=== PATIENT | male | born 1935 | race Caucasian/White ===

== ENCOUNTER → 2017-01-26 | Outpatient (CLI) | payer BC ==
[~2017-01-26] MED LIST: ADALAT CC30 MG PO; ALDACTONE 25MG25 M1 PO; ALDACTONE 25MG25 MG PO; ALTACE10 MG PO; AMBIEN 5MG TABLE5 MG PO; ATIVAN 0.50.5 MG/TAB PO; CATAFLAM50 MG PO; CEPHALEXIN500 M1 PO; CLARITIN 1010 MG/TAB PO; ENULOSE10 GM/15 M; FENTANYL 12MCG TD; FLOMAX 0.40.4 MG/CAP PO; FOLIC ACID 11 MG/TA1 PO; K-LOR CON; KLOR-CON M2020 MEQ PO; LEVAQUIN 5500 MG/TA1 PO; LEVAQUIN 750MG750 M1 PO; LOVENOX 100100 MG/ML SQ; MEGACE ORAL40 MG/ML PO; MILK OF MA1200 MG/5; MILK OF MA1200 MG/5 PO; PACERONE200 MG PO; PERCOCET 325 MG1 TA2 PO; PREDNISONE20 MG PO; ROXICODONE 55 MG/TAB PO; RT ADVAIR HFA 1112 G IH; SENNA8.6 MG PO; TOPROL XL 50MG50 MG PO; TOPROL XL50 MG PO; TYLENOL 500MG500 MG PO; XARELTO15 MG PO; ZOFRAN8 MG PO
== END ==
LOC: COL.RAD 08:09
DX: C34.90 Malignant neoplasm of unspecified part of unspecified bronchus or lung (principal); I61.9 Nontraumatic intracerebral hemorrhage, unspecified
CPT/HCPCS: A9585; Q9967

== ENCOUNTER → 2017-04-19 | Outpatient (CLI) | payer BC | LOC: COL.RAD 08:10 | DX: Z01.812 Encounter for preprocedural laboratory examination (principal); G93.89 Other specified disorders of brain; R90.82 White matter disease, unspecified; R59.0 Localized enlarged lymph nodes; M89.9 Disorder of bone, unspecified; Z98.890 Other specified postprocedural states; Z85.118 Personal history of other malignant neoplasm of bronchus and lung | CPT/HCPCS: A9585; J7050; Q9967 ==

== ENCOUNTER → 2017-07-12 | Outpatient (CLI) | payer BC | LOC: COL.RAD 09:30 | DX: C34.90 Malignant neoplasm of unspecified part of unspecified bronchus or lung (principal); G93.89 Other specified disorders of brain; R90.82 White matter disease, unspecified; R59.0 Localized enlarged lymph nodes; K44.9 Diaphragmatic hernia without obstruction or gangrene | CPT/HCPCS: A9585; Q9967 ==

== ENCOUNTER → 2017-09-12 | Outpatient (CLI) | payer BC | LOC: COL.RAD 10:36 | DX: R59.0 Localized enlarged lymph nodes (principal); C34.91 Malignant neoplasm of unspecified part of right bronchus or lung; Z98.890 Other specified postprocedural states; Z88.1 Allergy status to other antibiotic agents | CPT/HCPCS: A9585 ==

== ENCOUNTER → 2017-11-23 | Outpatient (CLI) | payer BC | LOC: COL.RAD 09:45 | DX: R59.9 Enlarged lymph nodes, unspecified (principal); R90.82 White matter disease, unspecified; Z98.890 Other specified postprocedural states | CPT/HCPCS: A9585; Q9967 ==

== ENCOUNTER → 2018-01-25 | Outpatient (CLI) | payer BC | LOC: COL.RAD 01-24 10:30 | DX: C34.90 Malignant neoplasm of unspecified part of unspecified bronchus or lung (principal); R59.0 Localized enlarged lymph nodes; G93.9 Disorder of brain, unspecified; H91.92 Unspecified hearing loss, left ear | CPT/HCPCS: A9585; Q9967 ==

== ENCOUNTER → 2018-02-23 | Outpatient (CLI) | payer BC | LOC: COL.RAD 10:53 | DX: C34.90 Malignant neoplasm of unspecified part of unspecified bronchus or lung (principal) ==

== ENCOUNTER → 2018-04-13 | Outpatient (CLI) | payer BC | LOC: COL.RAD 07:12 | DX: C34.90 Malignant neoplasm of unspecified part of unspecified bronchus or lung (principal) | CPT/HCPCS: A9585; Q9967 ==

== ENCOUNTER → 2018-07-11 | Outpatient (CLI) | payer BC | LOC: COL.RAD 09:33 | DX: C34.90 Malignant neoplasm of unspecified part of unspecified bronchus or lung (principal); C79.31 Secondary malignant neoplasm of brain | CPT/HCPCS: A9585; Q9967 ==

== ENCOUNTER → 2019-01-23 | Outpatient (CLI) | payer BC | LOC: COL.RAD 11:16 | DX: Z01.812 Encounter for preprocedural laboratory examination (principal); C34.90 Malignant neoplasm of unspecified part of unspecified bronchus or lung; J94.8 Other specified pleural conditions; Z98.890 Other specified postprocedural states | CPT/HCPCS: Q9967 ==

== ENCOUNTER → 2019-06-07 | Outpatient (CLI) | payer BC | LOC: COL.RAD 12:01 | DX: C34.31 Malignant neoplasm of lower lobe, right bronchus or lung (principal); C79.51 Secondary malignant neoplasm of bone; K44.9 Diaphragmatic hernia without obstruction or gangrene; R59.0 Localized enlarged lymph nodes; Z98.890 Other specified postprocedural states | CPT/HCPCS: A9585; Q9967 ==

== ENCOUNTER → 2019-11-02 | Outpatient (CLI) | payer BC | LOC: COL.RAD 07:26 | DX: C34.91 Malignant neoplasm of unspecified part of right bronchus or lung (principal) | CPT/HCPCS: Q9967 ==

== ENCOUNTER → 2020-03-03 | Outpatient (CLI) | payer BC | LOC: COL.RAD 10:44 | DX: C34.91 Malignant neoplasm of unspecified part of right bronchus or lung (principal) | CPT/HCPCS: Q9967 ==

== ENCOUNTER → 2020-07-24 | Outpatient (CLI) | payer BC ==
[2020-07-24 07:29] LABS: ALBUMIN 3.9 gm/dL (3.5-5.0); BILIRUBIN,TOTAL 0.6 mg/dL (0.0-1.0); CREATININE, serum 0.88 (0.66-1.25); POTASSIUM 4.1 mmol/L (3.4-5.0); TOTAL PROTEIN 6.8 gm/dL (6.4-8.2)
== END ==
LOC: COL.RAD 06:50
PROVIDERS: Internal Medicine Hematology & Oncology
DX: C34.91 Malignant neoplasm of unspecified part of right bronchus or lung (principal); R90.82 White matter disease, unspecified
CPT/HCPCS: A9585

== ENCOUNTER → 2020-08-20 | Outpatient (CLI) | payer BC ==
[~2020-08-20] MED LIST changes: +BETAPACE AF80 MG/TA1 PO; +IRON 27 MG PO; +PROCARDIA XL 3030 MG PO; +SENNA-LAX8.6 MG PO; -SENNA8.6 MG PO
[2020-08-20 13:46] LABS: ALBUMIN 4.2 gm/dL (3.5-5.0); BILIRUBIN,TOTAL 0.9 mg/dL (0.0-1.0); CALCIUM 9.2 mg/dL (8.4-10.2); CREATININE, serum 0.91 (0.66-1.25); POTASSIUM 4.5 mmol/L (3.4-5.0); TOTAL PROTEIN 7.1 gm/dL (6.4-8.2)
== END ==
LOC: COL.LAB 12:57
PROVIDERS: Internal Medicine Hematology & Oncology
DX: C34.91 Malignant neoplasm of unspecified part of right bronchus or lung (principal)

== ENCOUNTER 2020-12-12 06:02 | Day surgery (SDC) | payer BC ==
[~2020-12-12] VITALS: Ht 185.4 cm; Wt 88.8 kg
[~2020-12-12 06:02] MED LIST changes: -BETAPACE AF80 MG/TA1 PO; -IRON 27 MG PO; -PROCARDIA XL 3030 MG PO
[2020-12-12] MEDS ORDERED: BETAPACE AF80 MG/TA1 PO (06:37)
[2020-12-12] MEDS ORDERED: PROCARDIA XL 3030 MG PO (06:37)
[2020-12-12] MEDS ORDERED: IRON 27 MG PO (06:37)
[2020-12-12 06:38] VITALS: BP 118/82; PULSE 64; TEMP 98.6
[2020-12-12 07:50] VITALS: BP 95/65; PULSE 75; TEMP 97.3
--- NOTE | 2020-12-12 07:50 | NUR ---
TRANSPORTED BY CART FROM ENDOSCOPY SUIT ACCOMPANIED BY A NURSE, ABLE TO STAND AND AMBULATED TO A RECLINER W/ STANDBY ASSISTANCE, DENIES PAIN OR NAUSEA, ASKING IF HE HAD ANY POLYPS. MONITORS ON AND ALARMS SET, CALL LIGHT WITHIN REACH, ANSWERING QUESTIONS APPROPRIATLY, REQUESTING JUICE AND MUFFIN TO EAT, IV INFUSING IN RIGHT HAND W/ REDNESS OR SWELLING,
[2020-12-12 08:00] VITALS: BP 121/77; PULSE 75
--- NOTE | 2020-12-12 08:00 | NUR ---
TOLERATED JUICE AND MUFFIN W/ DIFFICULTY, STATED FEELING "FINE", SITTING IN THE CHAIR, VITAL SIGNS STABLE
[2020-12-12 08:15] VITALS: BP 127/76; PULSE 76
--- NOTE | 2020-12-12 08:15 | NUR ---
DISCONTINUED IV SITE, APPLIED COTTON SWAB AND COBAN TO SITE, DISCHARGE INSTRUCTIONS REVIEWED AND A COPY SENT W/ PATIENT. CALLED SPOUSE TO DRIVE TO [facility]PAT[facility] FOR PICKUP.
== END 2020-12-12 08:45 | disposition home or self-care (01) ==
LOC: SDCO 06:02
DX: Z12.11 Encounter for screening for malignant neoplasm of colon (principal); D12.8 Benign neoplasm of rectum; K57.30 Diverticulosis of large intestine without perforation or abscess without bleeding; I10 Essential (primary) hypertension; R73.01 Impaired fasting glucose; D64.9 Anemia, unspecified; M19.90 Unspecified osteoarthritis, unspecified site; J40 Bronchitis, not specified as acute or chronic; J90 Pleural effusion, not elsewhere classified; Z85.46 Personal history of malignant neoplasm of prostate; Z20.822 Contact with and (suspected) exposure to COVID-19; Z85.118 Personal history of other malignant neoplasm of bronchus and lung; Z85.828 Personal history of other malignant neoplasm of skin; Z79.899 Other long term (current) drug therapy; Z87.891 Personal history of nicotine dependence
CPT/HCPCS: J2704; J7120

== ENCOUNTER → 2021-01-13 | Outpatient (CLI) | payer BC ==
[~2021-01-13] MED LIST changes: +BETAPACE AF80 MG/TA1 PO; +IRON 27 MG PO; +PROCARDIA XL 3030 MG PO
== END ==
LOC: COL.RAD 07:47
DX: C34.31 Malignant neoplasm of lower lobe, right bronchus or lung (principal); R90.89 Other abnormal findings on diagnostic imaging of central nervous system
CPT/HCPCS: A9585; Q9967

== ENCOUNTER → 2021-06-29 | Outpatient (CLI) | payer BC ==
[2021-06-29 11:25] LABS: ALBUMIN 3.3 gm/dL (3.4-4.8); BILIRUBIN,TOTAL 0.7 mg/dL (0.2-1.2); CALCIUM 8.9 mg/dL (8.4-10.2); CREATININE, serum 0.69 mg/dL (0.72-1.25); POTASSIUM 4.1 mmol/L (3.5-4.5); TOTAL PROTEIN 6.7 gm/dL (6.2-8.1)
== END ==
LOC: COL.LAB 10:43 → COL.RAD 10:43
PROVIDERS: Internal Medicine Hematology & Oncology
DX: C34.90 Malignant neoplasm of unspecified part of unspecified bronchus or lung (principal); C79.51 Secondary malignant neoplasm of bone; R91.8 Other nonspecific abnormal finding of lung field
CPT/HCPCS: Q9967

== ENCOUNTER → 2021-08-20 | Outpatient (CLI) | payer BC ==
[2021-08-20 08:22] LABS: MEAN CELL VOLUME 85 fl (80.0-100.0); MEAN CORPUSCULAR HGB CONC 32 g/dl (33.0-37.0); MEAN PLATELET VOLUME 9.6 fl (7.4-10.4); PLATELET COUNT 121 K/mm3 (130-400); RED BLOOD COUNT 3.15 M/mm3 (4.20-5.60); REDCELL DISTRIBUTION WIDTH-CV 17.8 % (11.5-14.5)
[2021-08-20 08:29] LABS: HEMATOCRIT 26.9 % (42.0-52.0); HEMOGLOBIN 8.6 g/dl (13.5-18.0); MEAN CORPUSCULAR HEMOGLOBIN 27 pg (27-31)
[2021-08-20 08:36] LABS: ALBUMIN 2.9 gm/dL (3.4-4.8); BILIRUBIN,TOTAL 1.3 mg/dL (0.2-1.2); CALCIUM 7.9 mg/dL (8.4-10.2); CREATININE, serum 0.67 mg/dL (0.72-1.25); POTASSIUM 3.4 mmol/L (3.5-4.5); TOTAL PROTEIN 6.5 gm/dL (6.2-8.1)
[2021-08-20 09:02] LABS: ANISOCYTOSIS 1+; BAND 9 % (0-10); LYMPHOCYTE 59 % (20.0-51.0); METAMYELOCYTE 3 % (0-0); MICROCYTOSIS 2+; MYELOCYTE 2 % (0-0); NEUTROPHILS 24 % (42.0-75.2); NUCLEATED RED BLOOD CELL 1 (0-6)
== END ==
LOC: COL.LAB 07:55
PROVIDERS: Internal Medicine Hematology & Oncology
DX: C34.31 Malignant neoplasm of lower lobe, right bronchus or lung (principal)